=== PATIENT | male | born 1955 | race Caucasian/White ===

== ENCOUNTER 2016-09-23 19:46 | Emergency (ER) | payer OTHER ==
--- NOTE | 2016-09-23 19:58 | ED MVC/FALL/TRAUMA COMPLAINT ---
History of Present Illness General Chief Complaint: Shoulder Injury Stated Complaint: LEFT SHOULDER INJURY Source: patient Exam Limitations: no limitations Vital Signs & Intake/Output Vital Signs & Intake/Output Vital Signs Date Time Temp Pulse Resp B/P Pulse O2 O2 Flow FiO2 Ox Delivery Rate 09/238 97.1 72 18 152/76 98 Nasal 2.0L Cannula 09/23 2000 Room Air 09/23 1952 96.7 66 20 170/91 98 ED Intake and Output 09/24 0000 09/23 1200 Intake Total Output Total 300 Balance -300 Output, Urine 300 Patient 206 lb Weight Allergies Coded Allergies: No Known Allergies (09/23/16) Reconcile Medications Aspirin (Ecotrin*) 81 MG TABLET.DR 1 TAB PO DAILY HEART/BLOOD (Reported) Omeprazole 40 MG CAPSULE.DR 1 CAP PO DAILY GI (Reported) Oxycodone HCl/Acetaminophen (Percocet 5-325 MG Tablet) 5 MG-325 MG TABLET 1 TAB PO Q6H PRN PAIN Tadalafil (Cialis) 5 MG TABLET 1 TAB PO DAILY (Reported) Triage Note: PER PT FELL DOWN 1/2 FLIGHT OF STAIRS AND ? DISCLOCATED L SHOULDER 20 MINUTES ASSAYER, REFUSED MOTRIN IN TRIAGE. SLING APPLIED Triage Nurses Notes Reviewed? yes HPI: Patient is a 60-year-old male presents complaining of severe left shoulder pain status post fall. Patient slipped on a wet stair this evening and fell down approximately 7 stairs. Pain sharp pain currently severe, worsens with palpation and any attempt for movement. Patient reports he is not able to move his left shoulder since the fall. Patient is right-hand dominant. Patient denies head injury, headache, neck pain, back pain, numbness. (MARIELA GAO) Past History Travel History Traveled to [place] past 21 day No Medical History Any Pertinent Medical History? see below for history Neurological: NONE EENT: NONE Cardiovascular: NONE Respiratory: NONE Gastrointestinal: GERD Hepatic: NONE Renal: NONE Musculoskeletal: NONE Psychiatric: NONE Surgical History Surgical History: none Psychosocial History What is your primary language Swedish Tobacco Use: Never used Family History Hx Contributory? No (MARIELA GAO) Review of Systems Review of Systems Constitutional: Denies: chills, fever. Eyes: Denies: blurred vision. Ears, Nose, Throat, Mouth: Reports: no symptoms. Respiratory: Reports: no symptoms. Cardiovascular: Denies: chest pain, syncope. Gastrointestinal/Abdominal: Denies: abdominal pain, vomiting. Genitourinary: Reports: no symptoms. Musculoskeletal: Reports: see HPI. Denies: back pain, neck pain. Skin: Reports: no symptoms. Neurological/Psychological: Denies: headache, numbness, paresthesia. (MARIELA GAO) Physical Exam Physical Exam General Appearance: well developed/nourished, alert, awake Head: atraumatic, normal appearance Eyes: Bilateral: normal appearance. Ears, Nose, Throat, Mouth: hearing grossly normal, moist mucous membrane Neck: normal inspection, supple, full range of motion, no midline tenderness Respiratory: normal breath sounds, chest non-tender, no respiratory distress, lungs clear Cardiovascular: regular rate/rhythm Peripheral Pulses: 2+ radial (L) Gastrointestinal: soft, non-tender Back: normal inspection, normal range of motion Extremities: tenderness left shoulder with deformity. Patient unable to actively flex or abduct his left shoulder. No tenderness to the left elbow, left forearm, left wrist, left hand. Normal range of motion of the right upper and bilateral lower extremities Neurologic/Psych: awake, alert, oriented x 3, normal gait, normal mood/affect Skin: intact, normal color, warm/dry Core Measures ACS in differential dx? No Severe Sepsis Present: No Septic Shock Present: No (MARIELA GAO) Progress Differential Diagnosis: dislocation, fracture, AC separation, nerve injury Plan of Care: Orders Procedure Date/time Status XRY-SHOULDER COMPLETE-LEFT 09/23 2040 Active 2024: Written consent obtained for shoulder reduction after risks and benefits discussed. Discussed with and seen by Dr. Alex. Shoulder reduction performed using traction counter traction method. Dr. Alex present at bedside for moderate sedation and reduction. 09/23/2016 9:39:50 PM: Patient sleeping at this time. Arousable but remains very drowsy from moderate sedation. Intermittent nausea and vomiting. Results of post reductions x-ray discussed with patient's family member. Will continue to monitor and when patient recovers from sedation will be able to discharge to follow up with orthopedist. 09/23/2016 10:16:27 PM: Patient reports he is feeling better. Patient awake, alert, no current nausea. Will attempt fluid challenge and if patient able to tolerate oral intake and will discharge home to have him follow-up with his orthopedist, (Dr. Hansen?) 09/23/2016 10:35:34 PM: Patient vomiting after a small amount of water. Phenergan ordered. 09/23/2016 11:48:53 PM: Patient reports nausea is improving. 09/24/2016 12:14:51 AM: Patient tolerating ice chips appropriately. Discussed with patient and his presents of Hill-Sachs deformity on postreduction film. 09/24/2016 12:36:33 AM: Patient tolerating oral liquids without vomiting. Able to ambulate to the bathroom. Patient repors mild parasthesias to left thumb, index finger and middle finger. Sensation to light touch intact. Capillary refill and motor fuction normal. Appears stable for discharge and close follow up with his orthopedist. (KARINA CHANG,MARIELA) Diagnostic Imaging: Viewed by Me: Radiology Read. Discussed w/RAD: Radiology Read. Radiology Impression: PATIENT: SEAN HOFFMAN PRESENT AGE: 60 PATIENT ACCOUNT NO: [id number] : 54 LOCATION: [facility] ORDERING PHYSICIAN: MARIELA CHANG SERVICE DATE: 09/23/16 EXAM TYPE: RAD - XRY-SHOULDER COMPLETE-LEFT EXAMINATION: XR SHOULDER, LEFT CLINICAL INFORMATION: Dislocation. COMPARISON: No relevant prior studies are available for comparison. TECHNIQUE: Three views of the left shoulder. FINDINGS: There is anteroinferior dislocation of the humeral head. No displaced fracture is identified. A 6 mm ossification is noted adjacent to the posterior humeral head, which could represent underlying calcific tendinitis. No osseous erosion. IMPRESSION: 1. Anteroinferior humeral head dislocation. 2. Ossification adjacent to the posterior humeral head, which could represent underlying calcific tendinitis. DICTATED BY: TIKA CABRERA MD DATE/TIME DICTATED:09/23/162045 GENERATOR REPAIRER:SHAHRZAD DATE/TIME TRANSCRIBED:09/23/162045 CONFIDENTIAL, DO NOT COPY WITHOUT APPROPRIATE AUTHORIZATION. <Electronically signed in Other Vendor System> SIGNED BY: TIKA CABRERA MD 09/23/162056, PATIENT: SEAN HOFFMAN PRESENT AGE: 60 PATIENT ACCOUNT NO: [id number] : 53 LOCATION: [facility] ORDERING PHYSICIAN: MARIELA CHANG SERVICE DATE: 09/23/16 EXAM TYPE: RAD - XRY-SHOULDER COMPLETE-LEFT EXAMINATION: XR SHOULDER, LEFT CLINICAL INFORMATION: Post reduction radiographs. COMPARISON: Left shoulder radiographs done earlier the same day. TECHNIQUE: Three views of the left shoulder. FINDINGS: The humeral head is now well seated within the glenoid. There is mild flattening of the superolateral humeral head, consistent with a Hill-Sachs deformity. A faint 1.1 cm calcification is seen inferior to the glenoid, which could represent an osseous Bankart lesion. A 0.7 cm ossification is redemonstrated posterior to the humeral head, which could represent underlying calcific tendinitis. No joint space narrowing or marginal osteophytosis. IMPRESSION: 1. The humeral head is now well seated within the glenoid. Possible small osseous Bankart lesion at the inferior glenoid. Hill- Sachs deformity. 2. Calcification again noted posterior to the humeral head, which could represent underlying calcific tendinitis. DICTATED BY: TIKA CABRERA MD DATE/TIME DICTATED:09/23/162133 GENERATOR REPAIRER:SHAHRZAD DATE/TIME TRANSCRIBED:09/23/162133 CONFIDENTIAL, DO NOT COPY WITHOUT APPROPRIATE AUTHORIZATION. <Electronically signed in Other Vendor System> SIGNED BY: TIKA CABRERA MD 09/23/162145 (MARIELA GAO) Departure Departure Disposition: HOME OR SELF CARE Condition: Stable Clinical Impression Primary Impression: Dislocation of shoulder, left, closed Qualifiers: Encounter type: initial encounter Qualified Code: S43.005A - Unspecified dislocation of left shoulder joint, initial encounter Secondary Impressions: Hill Sachs deformity, left Referrals: JUVENTINO MCMILLAN,AMBER GEORGE MD,ADEEL Additional Instructions: Wear shoulder sling for support. Follow-up with your orthopedist or with Dr. George (orthopedist) for further evaluation. Call tomorrow morning for appointment to be seen within 1 week. Return to emergency department if numbness, weakness, decreased range of motion, pain uncontrollable or worsening of symptoms. Departure Forms: Customer Survey General Discharge Information Prescriptions: Current Visit Scripts Oxycodone HCl/Acetaminophen (Percocet 5-325 MG Tablet) 1 TAB PO Q6H PRN PAIN #10 TAB (MARIELA GAO) PA/BUSINESS INTELLIGENCE ANALYST Co-Sign Statement Statement: ED Attending supervision documentation- [X] I saw and evaluated the patient. I have also reviewed all the pertinent lab results and diagnostic results. I agree with the findings and the plan of care as documented in the PA's/BUSINESS INTELLIGENCE ANALYST's documentation. I was present during the shoulder reduction and monitored the conscious sedation. No complications. Excellent result. [] I have reviewed the ED Record and agree with the PA's/BUSINESS INTELLIGENCE ANALYST's documentation. [] Additions or exceptions (if any) to the PAs/BUSINESS INTELLIGENCE ANALYST's note and plan are summarized below: [] (MARY MCMILLAN,MIKE Nunez) Procedures Joint Reduction Joint Reduction Site: shoulder (L) Conscious Sedation: conscious sedation, performed by Dr. Alex and Reduction Attempts: 1 Pre-Procedure NV Exam: Yes Post-Procedure NV Exam: Yes Post Joint Reduction Film: joint reduced Procedural Sedation Sedation Type: moderate Indication: shoulder reduction Prior Complications: none ASA Classification: P1 Airway: normal anatomy Mallampati Classification: Class 2 Preparation: plan explained to patient, hospital consent signed, oximetry during procedure, IV access obtained, suction immediately avail, monitoring and evaluation advisor used Sedation: versed, etomidate Complications During/After Procedure: none Post Sedation Score: see sedation record I personally performed: procedure Intra-Service Time: 30 minutes or less (MARIELA GAO)
[2016-09-23] MEDS ORDERED: OMEPRAZOLE40 M1 PO (20:57)
--- NOTE | 2016-09-23 20:57 | RADIOLOGY REPORT ---
EXAMINATION: XR SHOULDER, LEFT CLINICAL INFORMATION: Dislocation. COMPARISON: No relevant prior studies are available for comparison. TECHNIQUE: Three views of the left shoulder. FINDINGS: There is anteroinferior dislocation of the humeral head. No displaced fracture is identified. A 6 mm ossification is noted adjacent to the posterior humeral head, which could represent underlying calcific tendinitis. No osseous erosion. IMPRESSION: 1. Anteroinferior humeral head dislocation. 2. Ossification adjacent to the posterior humeral head, which could represent underlying calcific tendinitis.
[2016-09-23] MEDS ORDERED: ASPIRIN EC81 M1 PO (20:58)
[2016-09-23] MEDS ORDERED: CIALIS5 M1 PO (20:58)
--- NOTE | 2016-09-23 21:46 | RADIOLOGY REPORT ---
EXAMINATION: XR SHOULDER, LEFT CLINICAL INFORMATION: Post reduction radiographs. COMPARISON: Left shoulder radiographs done earlier the same day. TECHNIQUE: Three views of the left shoulder. FINDINGS: The humeral head is now well seated within the glenoid. There is mild flattening of the superolateral humeral head, consistent with a Hill-Sachs deformity. A faint 1.1 cm calcification is seen inferior to the glenoid, which could represent an osseous Bankart lesion. A 0.7 cm ossification is redemonstrated posterior to the humeral head, which could represent underlying calcific tendinitis. No joint space narrowing or marginal osteophytosis. IMPRESSION: 1. The humeral head is now well seated within the glenoid. Possible small osseous Bankart lesion at the inferior glenoid. Hill-Sachs deformity. 2. Calcification again noted posterior to the humeral head, which could represent underlying calcific tendinitis.
[2016-09-23] MEDS ORDERED: PERCOCET 5-3251 EACH PO (22:27)
[2016-09-24 00:42] VITALS: BP 149/72
== END 2016-09-24 01:13 ==
LOC: ERH 19:46
DX: S43.005A Unspecified dislocation of left shoulder joint, initial encounter (principal); M21.822 Other specified acquired deformities of left upper arm; W10.9XXA Fall (on) (from) unspecified stairs and steps, initial encounter
CPT/HCPCS: 73030-LT; 96374; 96375; 96376; J2405; J2550; J2765

== ENCOUNTER 2016-09-26 18:34 | Emergency (ER) | payer OTHER ==
[~2016-09-26] VITALS: Ht 180.3 cm; Wt 93.4 kg
[~2016-09-26 18:34] MED LIST: ASPIRIN EC81 M1 PO; CIALIS5 M1 PO; OMEPRAZOLE40 M1 PO; PERCOCET 5-3251 EACH PO
--- NOTE | 2016-09-26 20:13 | RADIOLOGY REPORT ---
EXAMINATION: XR SHOULDER, LEFT CLINICAL INFORMATION: Dislocation. Pain. COMPARISON: X-ray dated 09/23/2016. TECHNIQUE: 3 views of the left shoulder. FINDINGS: There is anteroinferior dislocation of the humeral head relative to the glenoid process. The imaged left lung is clear. Mild deformity of the superolateral humeral head is again visible from presumed prior dislocation. Small curvilinear calcification in the soft tissues overlying the greater tuberosity may be due to calcific tendinosis. The acromioclavicular joint is normally maintained. IMPRESSION: Anteroinferior dislocation of the humeral head.
--- NOTE | 2016-09-26 21:30 | ED GENERAL ADULT ---
History of Present Illness General Chief Complaint: Shoulder Injury Stated Complaint: LT SHOULDER PAIN Source: patient, old records Exam Limitations: no limitations Vital Signs & Intake/Output Vital Signs & Intake/Output Vital Signs Date Time Temp Pulse Resp B/P Pulse O2 O2 Flow FiO2 Ox Delivery Rate 09/26 1913 97.4 72 18 147/96 99 Room Air Allergies Coded Allergies: No Known Allergies (09/23/16) Reconcile Medications Aspirin (Ecotrin*) 81 MG TABLET.DR 1 TAB PO DAILY HEART/BLOOD (Reported) Omeprazole 40 MG CAPSULE.DR 1 CAP PO DAILY GI (Reported) Oxycodone HCl/Acetaminophen (Percocet 5-325 MG Tablet) 5 MG-325 MG TABLET 1 TAB PO Q6H PRN PAIN Tadalafil (Cialis) 5 MG TABLET 1 TAB PO DAILY (Reported) Tramadol HCl 50 MG TABLET 1 TAB PO BIDP PRN PAIN Triage Note: PT TO ED FOR L SHOULDER PAIN, STATES IT DISLOCATED Saturday, CAME TO ED AND NOW FEELS THOUGH IT IS DISLOCATED AGAIN. +PULSES, DIFFICULT TO ASSESS DUE TO PT'S WORK UNIFORM. Triage Nurses Notes Reviewed? yes Onset: Just prior to arrival Duration: hour(s): (3) Timing: recent history Injury Environment: street Severity: moderate Severity Numbers: 8 Modifying Factors: Improves With: immobilization. Worsens With: movement. HPI: Patient is a 60-year-old male presenting to the emergency department complaining of left shoulder dislocation and pain since prior to arrival. He reports that he was seen here couple days ago for left shoulder dislocation and they reduced it. He was went for an MRI on Saturday and saw an orthopedic today for follow-up and everything was well. He was getting in his car when his hand got caught in the car handle in his arm rotated causing his shoulder to dislocate. Pain is moderate worse with movement. Denies taking anything for pain prior to arrival but was given ibuprofen at triage. Denies numbness or tingling. Denies any other injuries. (SELVIN LUNDBERG) Past History Travel History Traveled to [place] past 21 day No Medical History Any Pertinent Medical History? see below for history Neurological: NONE EENT: NONE Cardiovascular: NONE Respiratory: NONE Gastrointestinal: GERD Hepatic: NONE Renal: NONE Musculoskeletal: NONE Psychiatric: NONE Endocrine: NONE Blood Disorders: NONE Cancer(s): NONE BARREL BRANDER/Reproductive: NONE Surgical History Surgical History: none Psychosocial History What is your primary language Stateless Tobacco Use: Never used ETOH Use: occasional use Illicit Drug Use: denies illicit drug use Family History Hx Contributory? No (SELVIN LUNDBERG) Review of Systems Review of Systems Constitutional: Reports: no symptoms. Comments Review of systems: See HPI, All other systems negative. Constitutional, no chills fever or weight loss HEENT: No visual changes no sore throat no congestion Cardiovascular: No chest pain ,palpitation Skin, no jaundice no rashes Respiratory: No dyspnea cough sputum or hemoptysis GI: No nausea no vomiting Muscle skeletal: no back pain, no neck pain, Neurologic: No numbness no confusion Psych: No stress anxiety Immunology: No splenectomy or history of AIDS (SELVIN LUNDBERG) Physical Exam Physical Exam General Appearance: well developed/nourished, no apparent distress, alert, awake , comfortable Comments: Well-developed well-nourished person in no acute distress HEENT: Pupils equally round and reactive to light and accommodation. Nose is atraumatic. Neck: Normal inspection Back: Nontender, no CVA tenderness. Full range of motion Cardiovascular: , normal JVP Respiratory: No respiratory distress. Extremity: No edema, radial pulses are 2+ bilaterally. Limited range of motion of left shoulder secondary to pain. Pain to palpation over the left AC . Full range of motion of left wrist, left elbow. Neuro: Alert oriented x3, motor sensory normal Skin: No appreciable rash on exposed skin, skin is warm and dry. Psych: Mood and affect is normal, memory and judgment is normal. Core Measures ACS in differential dx? No CVA/TIA Diagnosis: No Severe Sepsis Present: No Septic Shock Present: No (SELVIN LUNDBERG) Progress Differential Diagnoses I considered the following diagnoses in my evaluation of the patient: Shoulder dislocation, shoulder fracture, labrum tear Diagnostic Imaging: Viewed by Me: Radiology Read. Discussed w/RAD: Radiology Read. Radiology Impression: PATIENT: SEAN HOFFMAN PRESENT AGE: 60 PATIENT ACCOUNT NO: [id number] : 54 LOCATION: [facility] ORDERING PHYSICIAN: EUGENIA PURDY DO SERVICE DATE: 09/26/16 EXAM TYPE: RAD - XRY-SHOULDER COMPLETE-LEFT EXAMINATION: XR SHOULDER, LEFT CLINICAL INFORMATION: Dislocation. Pain. COMPARISON: X-ray dated 09/23/2016. TECHNIQUE: 3 views of the left shoulder. FINDINGS: There is anteroinferior dislocation of the humeral head relative to the glenoid process. The imaged left lung is clear. Mild deformity of the superolateral humeral head is again visible from presumed prior dislocation. Small curvilinear calcification in the soft tissues overlying the greater tuberosity may be due to calcific tendinosis. The acromioclavicular joint is normally maintained. IMPRESSION: Anteroinferior dislocation of the humeral head. DICTATED BY: NONA ARAUZ MD DATE/TIME DICTATED:09/26/162007 CTRS:SHAHRZAD DATE/TIME TRANSCRIBED:09/26/162007 CONFIDENTIAL, DO NOT COPY WITHOUT APPROPRIATE AUTHORIZATION. <Electronically signed in Other Vendor System> SIGNED BY: NONA ARAUZ MD 09/26/162012 , xray: repeat film shows reduction Initial ED EKG: none Comments: Patient given ibuprofen on arrival at triage. Gentle shoulder manipulation done on exam with left upper extremity external rotation to see if the shoulder can be reduced. Able to appreciate slight pop sensation with upper extremity external rotation. Pulses still intact. Patient able to range left shoulder at this time. Will obtain repeat x-ray did to confirm reduction. 09/26/2016 10:08:00 PM patient informed of x-ray results. Placed in sling will follow with orthopedics. Given tramadol for pain at home. (DYLAN CHANG,SELVIN) Plan of Care: Orders Procedure Date/time Status Durable Medical Equipment 09/26 2205 Active XRY-SHOULDER COMPLETE-LEFT 09/26 2138 Active Current Medications Sig/Ion Start time Last Medication Dose Stop Time Status Admin Diazepam 5 MG ONCE ONE 09/26 2129 CAN (Valium) 09/26 2130 Morphine Sulfate 4 MG ONCE ONE 09/26 2129 CAN (Morphine) 09/26 2130 Departure Departure Time of Disposition: 2202 Disposition: HOME OR SELF CARE Condition: Stable Clinical Impression Primary Impression: Shoulder dislocation, recurrent Qualifiers: Laterality: left Qualified Code: M24.412 - Recurrent dislocation, left shoulder Ruled Out Impressions: Shoulder dislocation Referrals: VARSHA ENGLAND MD (PCP/Family) Additional Instructions: Follow-up with orthopedics call them tomorrow. Wear sling as much as possible as this will prevent recurrence of shoulder dislocation. Take tramadol as prescribed for severe pain. Begin also use [id number] Tylenol and Motrin as directed. Return for worsening symptoms or concerns. Departure Forms: Customer Survey General Discharge Information Prescriptions: Current Visit Scripts Tramadol HCl 1 TAB PO BIDP PRN PAIN #10 TAB (SELVIN LUNDBERG) PA/RESEARCH RECRUITER Co-Sign Statement Statement: ED Attending supervision documentation- [] I saw and evaluated the patient. I have also reviewed all the pertinent lab results and diagnostic results. I agree with the findings and the plan of care as documented in the PA's/RESEARCH RECRUITER's documentation. [X] I have reviewed the ED Record and agree with the PA's/RESEARCH RECRUITER's documentation. [] Additions or exceptions (if any) to the PAs/RESEARCH RECRUITER's note and plan are summarized below: [] (BRADEN MCMILLAN,SUKHWINDER) Procedures Joint Reduction Joint Reduction Site: shoulder (L) Conscious Sedation: none Reduction Attempts: 1 Pre-Procedure NV Exam: Yes Post-Procedure NV Exam: Yes Post Joint Reduction Film: joint reduced Progress: Patient tolerated procedure well. (SELVIN LUNDBERG) Critical Care Note Critical Care Note Critical Care Time: non-applicable (SELVIN LUNDBERG)
[2016-09-26 22:00] VITALS: BP 151/78
[2016-09-26] MEDS ORDERED: TRAMADOL HCL50 M1 PO (22:05)
--- NOTE | 2016-09-26 22:19 | RADIOLOGY REPORT ---
EXAMINATION: XR SHOULDER, LEFT CLINICAL INFORMATION: Post reduction. COMPARISON: Left shoulder 09/26/2016 TECHNIQUE: Three views of the left shoulder. FINDINGS: Successful shoulder reduction. Normal alignment between the glenoid and the humeral head. IMPRESSION: Successful shoulder dislocation reduction
== END 2016-09-26 22:43 ==
LOC: ERH 18:34
DX: M24.412 Recurrent dislocation, left shoulder (principal)
CPT/HCPCS: 73030-LT